=== PATIENT | male | born 1965 | race Caucasian/White ===

== ENCOUNTER 2017-03-30 14:51 | Inpatient (IN) ==
--- OUTSIDE RECORDS SUMMARY | 2017-03-29 17:06 | External Medical Summary | Continuity of Care Document ---
:1965 Author Organization [facility] Allergies Active Description Code Type Severity Reaction Onset Reported/ Identified Relationship Clinical to Patient Status Yes No Known NKMA N/A N/A 01/08/2014 Medication Allergies Yes oxyCODONE NKMA N/A aggressiv 09/15/2015 eness [id number] Medications Problems Date Dx Attending Type Code Diagnosis Diagnosed By Coded 02/16/2016 Aditya Porter M54.5 Low back pain Carol M 05/09/2016 Howie Hoang Final K62.5 Hemorrhage of anus F and rectum 05/10/2016 Brown Vu Final K92.1 Melena M 05/10/2016 Brown Vu Final R19.7 Diarrhea, M unspecified 09/13/2016 German Final M54.5 Low back pain Carol M 09/13/2016 German, Final R10.9 Unspecified Carol M abdominal pain 02/07/2017 German, Final N50.812 Left testicular Carol M pain 02/07/2017 German, Final R10.32 Left lower Carol M quadrant pain Procedures Code Description Performed By Performed On 02/16/2016 12726 Radiologic examination, spine, lumbosacral; 2 or 3 views.. 02/16/2016 00291 Office or other outpatient visit for the evaluation and management of an established patient, which requires at least 2 of these 3 sharma components: An expanded problem focused history; An expanded prob 05/05/2016 29642 Office or other outpatient visit for the evaluation and management of an established patient, which requires at least 2 of these 3 sharma components: An expanded problem focused history; An expanded prob 05/10/2016 90580 Office or other outpatient visit for the evaluation and management of a new patient, which requires these 3 sharma components: A comprehensive history; A comprehensive examination; Medical decision henry 05/10/2016 15539 Office or other outpatient visit for the evaluation and management of an established patient, which requires at least 2 of these 3 sharma components: A detailed history; A detailed examination; Medical d 09/13/2016 80921 Urinalysis, by dip stick or tablet reagent for bilirubin, glucose, hemoglobin, ketones, leukocytes, nitrite, pH, protein, specific gravity, urobilinogen, any number of these constituents; automated, w 09/13/2016 23495 Office or other outpatient visit for the evaluation and management of an established patient, which requires at least 2 of these 3 sharma components: An expanded problem focused history; An expanded prob 02/07/2017 47922 Office or other outpatient visit for the evaluation and management of an established patient, which requires at least 2 of these 3 sharma components: An expanded problem focused history; An expanded prob Results Encounters ACCT No. Visit Discharge Status Pt. Type Provider Facility Loc./Unit Complaint Date/Time [id number] 06/21/2013 06/21/2013 CLS Outpatient 13:37:00 23:59:59 [id number] 06/19/2013 06/19/2013 CLS Outpatient 14:29:00 23:59:59 [id number] 02/07/2017 02/07/2017 DIS Outpatient [place] [facility] New FM STOMACH 40 15:56:00 23:59:00 , Carol Alina ISSUES M Clinic [id number] 09/13/2016 09/13/2016 DIS Outpatient [place] [facility] FM lower back 04 14:46:00 23:59:00 , Carol Fuller pain with M Clinic no injury [id number] 05/10/2016 05/10/2016 DIS Outpatient [place] [facility] New RECTAL 04 15:32:00 23:59:00 , Brown Fuller Surg BLEEDING/A Clinic BD PN [id number] 05/05/2016 05/05/2016 [facility] Outpatient Hoang, [facility] New FM Rectal 68 09:41:00 23:59:59 Howie Fuller bleeding Clinic [id number] 02/16/2016 02/16/2016 DIS Outpatient [place] [facility] New FM TCPA 28 10:37:00 23:59:00 , Carol Fuller lower back M Clinic pain [id number] 09/15/2015 09/15/2015 DIS Outpatient Viktor, [facility] FM pain in 90 14:53:00 23:59:00 Howie Fuller surgery Clinic with from Dr. Vu [id number] 02/10/2015 02/10/2015 DIS Outpatient Viktor, [facility] New FM cut hand 49 14:21:00 23:59:00 Howie Fuller with saw Clinic [id number] 12/17/2014 12/17/2014 DIS Outpatient Viktor, [facility] New FM Post 40 10:29:00 23:59:00 Howie Fuller surgery Clinic pain and fever [id number] 12/12/2014 12/12/2014 DIS Outpatient Lawrence [facility] [place] op 12 09:06:00 23:59:00 , Carina Fuller Surg L Clinic [id number] 12/04/2014 12/04/2014 DIS Outpatient Viktor, [facility] New FM unusual 34 10:15:00 23:59:00 Howie Fuller swelling Clinic after surgery hernia
[2017-03-29 17:20] VITALS: BMI 32.7
--- NOTE | 2017-03-29 20:29 | General Surg History&Physical ---
- History of Present Illness Chief complaint: Left inguinal pain, swelling, redness HPI: Per Dr. Vu [facility]1983 Patient Stated Medical History No chronic problems Surgical History: 12-01-2014 Left inguinal hernia repair with mesh. 2004 ORIF right hand. 06-24-2016 colonoscopy with random biopsies- normal, diverticulosis. Family History: Father - [place] Mother - COPD Sister - Breast cancer - Social History Smoking status: Never smoker Alcohol intake: current Alcohol intake frequency: 3 or more drinks per day (3 or more Beer a day) Housing: house Household members: spouse Current occupational status: employed ([employer]) Medications Home Medications Medication Instructions Recorded Confirmed Type No known Home medications [No home 03/29/17 03/29/17 History meds] Allergies Allergy/AdvReac Type Severity Reaction Status Date / Time oxycodone Allergy Unknown AGGRESSION Verified 03/29/17 17:27 diphenhydramine AdvReac Sedation Verified 03/29/17 17:29 [From Benadryl] Review of Systems 10-point ROS: negative except for HPI and the following: - General General: Present: fever - Gastrointestinal Gastrointestinal: Present: blood in stools (occasionally) - Genitourinary Additional comments: since the left swelling and redness started in left inguinal area, urine stream has become weak, no dysuria - Musculoskeletal Musculoskeletal: Present: back pain, joint pain (wrist) - Neurological Neurological: Present: other (headaches) - Vital Signs Last Vital Signs Temp 98.6 F 03/29/17 17:11 Pulse 70 03/29/17 17:11 Resp 18 03/29/17 17:11 BP 147/100 H 03/29/17 17:11 Pulse Ox 92 03/29/17 17:11 Hospital Course Summary Disclaimer: The visit summary below is not to be considered part of the above Progress Note.
[2017-03-29] MEDS: LR 1,000 ML IV SCH (20:58)
[2017-03-29] MEDS: PIPERACILLIN/TAZOBACTAM 3.375 GM in NS 100 ML IV SCH (20:58)
[2017-03-30] MEDS: PIPERACILLIN/TAZOBACTAM 3.375 GM in NS 100 ML IV SCH ×4 (02:37→20:42)
[2017-03-30] MEDS: LR 1,000 ML IV SCH ×3 (08:57→18:41)
[2017-03-30] MEDS: SALINE FLUSH 10ml SYRINGE IV PRN (09:01)
--- NOTE | 2017-03-30 14:48 | Anesthesia Preoperative Report ---
Anesthesia Preoperative Record - Date and Time Date: 03/30/17 Preoperative Diagnosis: incision and drainage l groin Proposed Procedure: Left groin abcess drainage NPO Since Date: 03/29/17 NPO Since Time: 20:30 Allergies/Adverse Reactions: Allergies Allergy/AdvReac Type Severity Reaction Status Date / Time oxycodone Allergy Unknown AGGRESSION Verified 03/30/17 14:32 diphenhydramine AdvReac Sedation Verified 03/30/17 14:32 [[facility]] - Vital Signs Vital Signs: Temperature 97.1 F 03/30/17 14:33 Pulse Rate 59 L 03/30/17 14:33 Respiratory Rate 19 03/30/17 14:33 Blood Pressure 132/88 03/30/17 14:33 Pulse Oximetry 93 03/30/17 14:33 Height and Weight: Height 5 ft 11 in Weight 107.1 kg Body Mass Index 32.7 - Medications Inpatient Medications: Current Medications Hydrocodone Bitart/Acetaminophen ([place] 5/325) 1 - 2 tab PO Q6H PRN PRN Reason: Pain Lactated Ringer's (Lactated Ringers) 1,000 mls @ 100 mls/hr IV .Q10H [facility] Last Infusion: 03/30/17 10:51 Dose: 100 mls/hr Piperacillin Sod/Tazobactam (Sod 3.375 gm/ Sodium Chloride) 100 mls @ 200 mls/ hr IV Q6H [facility] Last Admin: 03/30/17 14:38 Dose: 200 mls/hr Morphine Sulfate (Morphine Sulfate Inj) 1 - 4 mg IVP Q2H PRN PRN Reason: Pain Ondansetron HCl (Zofran) 4 mg IVP Q6H PRN PRN Reason: Nausea &/or vomiting Sodium Chloride (Iv Flush) 10 - 80 ml IV PRN PRN PRN Reason: Flushing Last Admin: 03/30/17 09:01 Dose: 10 ml Home Medications: Home Medications Medication Instructions Recorded Confirmed Type No known Home medications [No home 03/29/17 03/29/17 History meds] Is Patient on Beta [place]?: No - Medical History Respiratory: Reports: Asthma DENIES: Bronchitis, Chronic Obstructive Pulmonary Disease (COPD), Dyspnea, Orthopnea, Pulmonary Embolism, Pneumonia, Upper Respiratory Infection, Pulmonary Edema, Sleep Apnea, Tuberculosis, Other Cardiovascular: DENIES: Abnormal EKG, Angina, Arrhythmia, Congestive Heart Failure, Coronary Artery Disease, Heart Murmur, Hypertension, Hypotension, High Cholesterol, Myocardial Infarction, Rheumatic Fever, Valvular Heart Disease, Other Gastrointestional: DENIES: Obstructive Bowel, Hepatitis, Cirrhosis, Nausea or Vomiting Present, Gastroesophageal Reflux Disease, Gastrointestinal Bleeding, Hiatal Hernia, Ulcer , Morbid Obesity, Other Neuro/Musculoskeletal: Denies: HX.MS.OSAR, Back Problems, Cerebrovascular Accident, Depression, Headaches, Loss of Consciousness, Muscle Weakness, Neuromuscular Disorder, Paralysis, Paresthesia, Syncope, Seizures, Other Renal/Endocrine: DENIES: Diabetes Mellitus Type 1, Diabetes Mellitus Type 2, Renal Failure, Dialysis, Thyroid Disease, Weight Loss, Weight Gain, Other Other History: DENIES: Anesthesia Reactions, Now, Blood Transfusions, Chemotherapy , Cancer, Hemophilia, Malignant Hyperthermia, Sickle Cell Disease, Other - Surgical History GI Surgery/Treatments: Reports: Colonoscopy Anesthesia Reactions: None Hx Family Anesthesia Reaction: No History of Motion Sickness: No - Social History Smoking Status: Never smoker Hx Chewing Tobacco Use: No Second Hand Exposure: No Substance Use Type: does not use Alcohol Intake: current Alcohol Intake Frequency: 3 or more drinks per day (3 or more Beer a day) - Pertinent Findings Laboratory: CBC and BMP 03/29/17 20:33 03/29/17 20:33 BMP 03/29/17 20:33 Sodium 143 Potassium 4.0 Chloride 106 Carbon Dioxide 27 BUN 12.0 Creatinine 1.0 Glucose 85 Calcium 8.7 Urine 03/29/17 Range/Units 23:52 Urine Color Yellow (YELLOW) Urine Clarity Clear Urine pH 7.0 (5.0-8.0) Ur Specific [place] 1.010 L (1.015-1.025) Urine Protein Negative (NEGATIVE) Urine Glucose (UA) Negative (NEGATIVE) EKG: Sinus Rhythm - Physical Exam Respiratory Exam: Present: lungs clear, bilateral breath sounds equal Cardiovascular Exam: Present: regular rate and rhythm, no murmur - Airway Assessment Mallampati Score: I TMD: 3 Fingerbreadths Neck Extension: good Teeth: patial upper dentures, partial lower dentures Overall Assessment: no airway concerns - ASA ASA Score: 1, E - Plan Anesthesia: General TIVA - Discussion Discussion: Discussed risks/options/alternatives of anesthesia and questions answered. Patient consents. Nursing pain assessment noted. Present for Discussion: spouse Attestation Statement: Prior to the delivery of any anesthetic medication, I examined the patient, developed the plan, obtained the patient's consent and discussed the risk and benefits of the procedure with the patient/guardian. - Additional Information Seen by Anesthesia: Yes
[~2017-03-30 14:51] MED LIST: MORPHINE SULFATE 4mg INJECTION IVP PRN; ONDANSETRON 4 MG/2 ML INJECTION IVP PRN
[2017-03-30] MEDS ORDERED: PROPOFOL 500 MG/50 ML VIAL IV ONE ×3 (15:02→16:03)
[2017-03-30] MEDS ORDERED: KETAMINE 500 MG/10 ML INJECTION ONE (15:04)
[2017-03-30] MEDS ORDERED: FentaNYL 100 MCG/2 ML INJECTION ONE ×2 (15:04→16:30)
[2017-03-30] MEDS ORDERED: SALINE FLUSH 10ml SYRINGE ONE (15:09)
--- NOTE | 2017-03-30 16:09 | Progress Note ---
DATE 03/30/2017 FINDINGS Mr. Faye states that the redness has markedly improved after initiating antibiotics. He states he is still experiencing however a moderate amount of discomfort within the left inguinal region. OBJECTIVE VITALS: Afebrile. Normotensive. Last recorded vitals include temperature 97.1 , pulse 59, respirations 19, blood pressure 132/88, SaO2 93% on room air. CHEST: Clear to auscultation bilaterally. HEART: Regular rate and rhythm. Normal S1, S2, without gallops, murmurs or clicks. ABDOMEN: Soft, nontender. Attention was focused to the left inguinal region. The erythema involving the left inguinal region has begun to dissipate. Upon palpation, the patient still has a firm discrete painful mass that is about 2 cm lateral to the pubic symphysis. This subcutaneous mass was about 3 cm in diameter. ASSESSMENT 51-year-old gentleman who presents with erythema and subcutaneous mass involving left inguinal region suspicious for underlying abscess. Patient status post left inguinal herniorrhaphy with incorporation of mesh approximately two years ago. PLAN Given the fact that he had been on antibiotics previously and this process had resolved to only reoccur after discontinuing antibiotics and the fact that the CT scan does reveal a fluid collection suspicious for an abscess, it would be my recommendation that we go ahead and proceed with left inguinal exploration. If indeed an abscess is identified, we will proceed with incision and drainage of underlying abscess and excision of infected tissue. If there is evidence that the infection is involving mesh we may proceed with explantation/removal of mesh. The above plan was discussed with the patient and his . They understood and wished to proceed as stated above. CHERELLE
[2017-03-30] MEDS ORDERED: PROPOFOL 60 ML ONE (16:28)
[2017-03-30] MEDS ORDERED: GENTAMICIN 80mg/2ml INJECTION ONE (16:40)
[2017-03-30] MEDS ORDERED: PROPOFOL 40 ML ONE (16:59)
--- NOTE | 2017-03-30 17:20 | General Surgery Procedure Note ---
Date of Procedure: 03/30/17 Surgeon: Horace Warehouse Picker: Mckinley Lawrence APRN Postoperative Diagnosis: Abscess with infected left inguinal mesh. Procedure: Left inguinal exploration with explantation of mesh Estimated Blood Loss: See Anesthesia Record.
[2017-03-30] MEDS ORDERED: HYDROMORPHONE 2 MG/ML INJECTION IVP PRN (17:42)
[2017-03-30] MEDS ORDERED: ACETAMINOPHEN IV 1,000 MG/100 ML VIAL IV ONE (18:00)
[2017-03-30] MEDS: HYDROCODONE/APAP 5mg/325mg TABLET PO PRN (20:11)
--- NOTE | 2017-03-30 20:24 | Anesthesia Postoperative Note ---
- Date and Time Date: 03/30/17 Time: 20:15 - Status Patient Participated in Evaluation: Patient Participated in Person Vital Signs: Temperature 97.1 F 03/30/17 18:21 Pulse Rate 48 L 03/30/17 19:08 Respiratory Rate 9 L 03/30/17 18:20 Blood Pressure 115/82 03/30/17 19:08 Pulse Oximetry 96 03/30/17 19:08 Cardiovascular Function: Regular Pulse Mental Status: Alert and Oriented (slightly drowsy) Pain Intensity: 3 Hydration: Taking PO Fluids Complications During Recover: None Apparent - Follow-Up Instructions Instructions: Per Surgeon
[2017-03-31] MEDS: MORPHINE SULFATE 4mg INJECTION IVP PRN ×2 (00:43→05:36)
[2017-03-31] MEDS: PIPERACILLIN/TAZOBACTAM 3.375 GM in NS 100 ML IV SCH ×4 (02:14→22:21)
[2017-03-31] MEDS: LR 1,000 ML IV SCH (06:07)
[2017-03-31] MEDS ORDERED: LR 1,000 ML IV SCH (09:00)
[2017-03-31] MEDS ORDERED: PROPOFOL 40 ML ONE (09:31)
[2017-03-31] MEDS ORDERED: FentaNYL 100 MCG/2 ML INJECTION ONE (09:31)
[2017-03-31] MEDS ORDERED: PROPOFOL 20 ML ONE (10:53)
--- NOTE | 2017-03-31 10:54 | Anesthesia Preoperative Report ---
Anesthesia Preoperative Record - Date and Time Date: 03/31/17 Preoperative Diagnosis: incision and drainage l groin Proposed Procedure: left groin I&D and wound vac NPO Since Date: 03/30/17 NPO Since Time: 23:00 Allergies/Adverse Reactions: Allergies Allergy/AdvReac Type Severity Reaction Status Date / Time oxycodone Allergy Unknown AGGRESSION Verified 03/30/17 14:32 diphenhydramine AdvReac Sedation Verified 03/30/17 14:32 [From [facility]] - Vital Signs Vital Signs: Temperature 99.5 F 03/31/17 08:05 Pulse Rate 82 03/31/17 08:05 Respiratory Rate 16 03/31/17 08:05 Blood Pressure 137/82 03/31/17 08:05 Pulse Oximetry 91 03/31/17 08:05 Height and Weight: Height 5 ft 11 in Weight 107.1 kg Body Mass Index 32.7 - Medications Inpatient Medications: Current Medications Hydrocodone Bitart/Acetaminophen ([place] 5/325) 1 - 2 tab PO Q6H PRN PRN Reason: Pain Last Admin: 03/30/17 20:11 Dose: 2 tab Lactated Ringer's (Lactated Ringers) 1,000 mls @ 100 mls/hr IV .Q10H [facility] Last Admin: 03/31/17 06:07 Dose: 100 mls/hr Piperacillin Sod/Tazobactam (Sod 3.375 gm/ Sodium Chloride) 100 mls @ 200 mls/ hr IV Q6H [facility] Last Infusion: 03/31/17 09:30 Dose: Infused Lactated Ringer's (Lactated Ringers) 1,000 mls @ 50 mls/hr IV .Q20H FISH Last Admin: 03/31/17 08:57 Dose: 50 mls/hr Morphine Sulfate (Morphine Sulfate Inj) 1 - 4 mg IVP Q1H PRN PRN Reason: Pain Last Admin: 03/31/17 05:36 Dose: 4 mg Ondansetron HCl (Zofran) 4 mg IVP Q6H PRN PRN Reason: Nausea &/or vomiting Sodium Chloride (Iv Flush) 10 - 80 ml IV PRN PRN PRN Reason: Flushing Last Admin: 03/30/17 09:01 Dose: 10 ml Home Medications: Home Medications Medication Instructions Recorded Confirmed Type No known Home medications [No home 03/29/17 03/29/17 History meds] Is Patient on Beta [place]?: No - Surgical History GI Surgery/Treatments: Reports: Colonoscopy Surgery/Treatment: DENIES: Dialysis Anesthesia Reactions: None Hx Family Anesthesia Reaction: No History of Motion Sickness: No - Social History Smoking Status: Never smoker Hx Chewing Tobacco Use: No Second Hand Exposure: No Substance Use Type: does not use Alcohol Intake: current Alcohol Intake Frequency: 3 or more drinks per day (3 or more Beer a day) - Pertinent Findings Laboratory: CBC and BMP 03/31/17 04:06 03/31/17 04:06 BMP 03/31/17 04:06 Sodium 144 Potassium 4.2 Chloride 104 Carbon Dioxide 33 H BUN 11.0 Creatinine 1.1 Glucose 106 Calcium 8.5 EKG: Sinus Rhythm - Physical Exam Respiratory Exam: Present: lungs clear, bilateral breath sounds equal Cardiovascular Exam: Present: regular rate and rhythm, no murmur - Airway Assessment Mallampati Score: I TMD: 3 Fingerbreadths Neck Extension: good Teeth: patial upper dentures, partial lower dentures Overall Assessment: no airway concerns - ASA ASA Score: 2, E - Plan Anesthesia: General TIVA - Discussion Discussion: Discussed risks/options/alternatives of anesthesia and questions answered. Patient consents. Nursing pain assessment noted. Present for Discussion: spouse Attestation Statement: Prior to the delivery of any anesthetic medication, I examined the patient, developed the plan, obtained the patient's consent and discussed the risk and benefits of the procedure with the patient/guardian. - Additional Information Seen by Anesthesia: Yes
--- NOTE | 2017-03-31 11:00 | Operative Note ---
DATE OF PROCEDURE 03/30/2017 SURGEON Brown Vu MD [employer] Mckinley Lawrence APRN PREOPERATIVE DIAGNOSIS Left inguinal mass, abnormal CT scan revealing probable abscess within the left inguinal region. POSTOPERATIVE DIAGNOSIS Abscess within the left inguinal region secondary to probable mesh infection. PROCEDURE Exploration of left inguinal region with incision and drainage of abscess, explantation of infected mesh. ANESTHESIA TIVA/local. BRIEF HISTORY/INDICATIONS Mr. Faye is a 51-year-old gentleman whom I was asked to see last evening as a result of his history and physical findings of left inguinal discomfort. Upon examination, the patient's primary care physician had noted a mass within his left inguinal region. The patient had been on antibiotics empirically about two weeks ago and the infection/mass markedly improved. However, after the discontinuation of the antibiotics, this mass recurred. The patient's primary care physician had discussed this case with me yesterday during my office. I informed the patient's primary care physician that it was my recommendation to proceed with a CT scan for further evaluation. Last evening when I was operating, his primary care physician had notified me that the CT scan did reveal a probable abscess within the left inguinal region. The patient had undergone a prior left inguinal herniorrhaphy by me approximately two years ago. The patient thought that it had been about a year ago. However , upon reviewing the records, this actually occurred more than two years ago. Secondary to this abnormal CT scan, the patient was admitted to the hospital and placed on broad-spectrum antibiotics. This morning the erythema had improved markedly. He continued, however, to have a painful, firm mass within the left inguinal region. This mass was located just lateral to the pubic symphysis region. It was my recommendation that we proceed with surgical exploration for it was fear that the patient may have an underlying mesh infection. For completeness please refer to notes included in the patient's chart. DESCRIPTION OF PROCEDURE After informed consent was obtained, the patient was brought to the operative suite and placed on the table in a supine fashion. Left inguinal region was then prepped and draped in a sterile fashion. Formal time-out was then completed. 0.25% Marcaine with epinephrine was injected just above the pubic symphysis and extended out laterally beneath his prior surgical incision site. Next, a 7 cm incision was then made overlying the area of analgesia. Dissection was carried down in the deep subcuticular tissues. Secondary to the fact that this was a reoperation, in conjunction with the infection/ inflammation that was present, dissection and identification of the anatomy was somewhat technically difficult. Dissection was carried down to the underlying external oblique aponeurosis. One could see where the external oblique aponeurosis had been opened previously and closed during his prior inguinal herniorrhaphy. Upon palpation of the external oblique aponeurosis, there was a hard mass located just lateral to the pubic symphysis. One could see what appeared to be that of the external ring and the cord structures exiting through the external ring near the pubic symphysis. The external oblique aponeurosis was opened out laterally away from the area of marked inflammation. As one opened up the external oblique aponeurosis, the underlying tissue was not infected and there was no purulent material. One could then begin to see the cord structures which were carefully and meticulously dissected away from the external oblique aponeurosis as it was continued to be opened towards the pubic symphysis. As one approached the pubic symphysis there was a very hard discrete mass. This mass was entered and purulent material was expressed. Anaerobic and aerobic cultures were obtained and passed off the table. External oblique aponeurosis continued to be opened down to the external ring. Spermatic cord structures were quite adherent to the surrounding tissues but, with careful meticulous dissection, were able to be preserved and dissected out of the surgical field. A Kortney drain was placed around the cord structures. One could then see into this abscess cavity that was entered. One could then see the Prolene suture that had been tied upon the pubic symphysis anchoring the mesh overlay. Purulent material extended down to this suture. Surrounding tissues which were quite fibrotic and inflamed were then dissected away from the mesh overlay and the previously placed suture. The Prolene suture next to the pubic symphysis was then transected and removed. The mesh overlay that had been imbricated to the pubic symphysis as well as to the shelving edge of the inguinal ligament laterally and medially to the underlying internal oblique and transversalis aponeurosis was then dissected away from these structures. The abscess cavity did extend down to this mesh. The mesh was not densely adherent to the inguinal floor/Hesselbach's triangle as one would suspect following mesh implantation. The infection likely had disrupted the mesh from the underlying inguinal floor. The mesh was therefore able to be removed fairly easily. As one approached the cord structures, there was no sign of infection. The mesh plug was placed cephalad and lateral to the cord structures. The infection did not extend up to the mesh plug. The mesh plug was not visible but could be easily palpated above the cord structures. Secondary to the fact that the infection did not appear to extend beyond the inguinal floor and towards the internal ring, I elected not to open up this normal-appearing tissue to expose the mesh plug that had been previously placed within the internal ring. All grossly infected tissue and infected mesh was excised. Hemostasis was obtained with the use of electrocautery. I elected not to proceed with any type of closure. I did place the cord structures away from of the inguinal floor. A "skin flap" was created caudally along the incision. Rakes were placed upon the skin edges and retracted anteriorly. Subcutaneous tissues were then undermined a short distance caudally. I elected to go ahead and place the cord structures in this area that had been created within the subcutaneous tissues. The cord structures were placed within this subcutaneous pocket and the pocket was loosely imbricated around the cord structures in a running fashion with 3-0 Vicryl so that the cord structures were now out of the surgical field. The wound was then irrigated with gentamicin solution. A Kerlix roll was then placed within the open wound and the wound was packed. It is my plan that tomorrow we will reevaluate the patient's surgical wound and likely proceed with application of a wound VAC/utilization of negative wound pressure therapy. Will continue with broad spectrum antibiotics at this time. Additionally, it should be noted that Mckinley Lawrence APRN, was present throughout the entire case and played a pivotal role in providing assistance and exposure during the course of the procedure. CHERELLE
--- NOTE | 2017-03-31 11:11 | General Surgery Procedure Note ---
Date of Procedure: 03/31/17 Surgeon: Horace Specimen Transporter: Mckinley Lawrence APRN, Other (Andie Bone, RN CWS placement of wound vac ) Postoperative Diagnosis: abscess with infected mesh left inguinal area Procedure: debridement of necrotic tissue and mesh left inguinal area Estimated Blood Loss: See Anesthesia Record. Pathology: none sent
[2017-03-31] MEDS ORDERED: HYDROMORPHONE 2 MG/ML INJECTION IVP PRN (11:28)
--- NOTE | 2017-03-31 11:41 | Anesthesia Postoperative Note ---
- Date and Time Date: 03/31/17 Time: 11:40 - Status Patient Participated in Evaluation: Patient Participated in Person Vital Signs: Temperature 98.4 F 03/31/17 11:05 Pulse Rate 79 03/31/17 11:35 Respiratory Rate 18 03/31/17 11:35 Blood Pressure 109/75 03/31/17 11:35 Pulse Oximetry 90 03/31/17 11:35 Respiratory Function: Airway Patent, Regular Respirations Cardiovascular Function: Regular Pulse Mental Status: Alert and Oriented Pain Intensity: 1 Hydration: IV Infusing Complications During Recover: None Apparent - Follow-Up Instructions Instructions: Per Surgeon
[2017-03-31] MEDS ORDERED: KETOROLAC 30 MG/ML INJECTION IVP PRN (11:57)
[2017-03-31] MEDS ORDERED: HYDROMORPHONE PCA 30mg/30ml VIAL IV PRN ×2 (11:57)
--- NOTE | 2017-03-31 11:57 | Infectious Disease Consult ---
Infectious Disease Consult Date of Consultation: 03/31/17 Requesting Physician: Brown Vu Reason for Consultation: antibiotic recs History of Present Illness: Mr. Faye is a 51 y/o man who is s/p L inguinal hernia repair about 2 years ago. He developed swelling around his L testicle with pain and "purple" discoloration a few weeks ago. He was given an antibiotic that was twice a day (he can't recall the name) and it resolved his symptoms. Then a couple weeks after that, his symptoms recurred. He woke up Monday morning with swelling and pain in the L groin area. He was admitted here on Thursday 03/29. CT scan on 03/29 showed an abscess around the mesh. He was taken to the OR yesterday by Dr. Vu and this was drained and all infected mesh was removed. Some of the mesh was left intact. He was taken back to the OR today for placement of a wound VAC. His wound culture was initially reported as growing GPC, but not states "early growth." He is on Zosyn. I've been asked to help with his antibiotics. He also reports that he had an injury to his R hand in 2004 that led to a pin placement that became infected with Staph. He recalls seeing ID at that time and being on IV antibiotics for a prolonged period of time. He denies that he was placed on chronic suppressive antibiotics. Medications Home Medications Medication Instructions Recorded Confirmed Type No known Home medications [No home 03/29/17 03/29/17 History meds] Allergies Allergy/AdvReac Type Severity Reaction Status Date / Time oxycodone Allergy Unknown AGGRESSION Verified 03/30/17 14:32 diphenhydramine AdvReac Sedation Verified 03/30/17 14:32 [From Benadryl] [facility] Patient Stated Medical History Cerebrovascular Accident No Paralysis No Seizures No Syncope No Angina No Cardiac Arrhythmia No Congestive Heart Failure No Coronary Artery Disease No Heart Murmur No Hypertension No Hypotension No Myocardial Infarction No Rheumatic Fever No Valvular Heart Disease No Other Cardiology No Asthma Yes Bronchitis No Chronic Obstructive Pulmonary No Disease (COPD) Pneumonia No Pulmonary Edema No Pulmonary Embolism No Sleep Apnea No Tuberculosis No Other Respiratory No Diabetes Mellitus Type 1 No Diabetes Mellitus Type 2 No Cirrhosis No Gastroesophageal Reflux No Disease Gastrointestinal Bleeding No Hepatitis No Hiatal Hernia No Obstructive Bowel No Ulcer No Other GI No Osteoarthritis No Other Musculoskeletal No Anesthesia Reactions No Blood Transfusions No Chemotherapy No Malignant Hyperthermia No Other No Depression No Now No Medical History Updates: H/o infected hardware R 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 2004 ORIF right hand. 06-24-2016 colonoscopy with random biopsies- normal, diverticulosis. Family History Updates: Father - [place]. Mother - COPD. Sister - Breast cancer - Social History Smoking status: Never smoker Household members: spouse Does patient use chewing tobacco?: No Review of Systems All systems PM: 10-point ROS was reviewed, no additional remarkable complaints except - Constitutional Constitutional: Present: chills, fever(s) - EENMT Eyes: Absent: change in vision - Cardiovascular Cardiovascular: Absent: chest pain - Respiratory Respiratory: Present: cough. Absent: dyspnea - Gastrointestinal Gastrointestinal: Absent: diarrhea, nausea, vomiting - Genitourinary Genitourinary: Present: difficulty urinating (difficulty emptying bladder), scrotal swelling (L side), testicular pain (L side). Absent: dysuria - Integumentary/Breasts Integumentary: Absent: erythema - Neurological Neurological: Present: headache(s) Exam Vital Signs: Temperature 98.4 F 03/31/17 11:05 Pulse Rate 80 03/31/17 11:50 Respiratory Rate 18 03/31/17 11:50 Blood Pressure 120/78 03/31/17 11:50 Pulse Oximetry 91 03/31/17 11:50 Height/Weight/BMI: Height 1.8 m Weight 107.1 kg Body Mass Index 32.7 - Constitutional Present: no acute distress, well nourished, well developed, average body habitus - Routine HEENT Exam Head: Present: normocephalic, atraumatic Eye: Present: EOMI, PERRL ENT: Present: mucous membranes dry, dentition normal - Routine Neck Exam Present: supple - Routine Respiratory Exam Present: CTA bilaterally - Routine Cardiovascular Exam Present: RRR - Routine Abdominal Exam Present: soft, non distended, non tender. Absent: rebound, guarding Comments: hypoactive bowel sounds - Routine Exam Groin: Present: swelling (L groin area, wound VAC on wound), erythema (mild, around wound VAC) - Routine Extremities Exam Absent: cyanosis, clubbing, edema - Routine Skin Exam Present: intact. Absent: rash - Routine Neurological Exam Present: alert, oriented X3, CN II-XII intact. Absent: motor deficit - Routine Psychiatric Exam Present: normal affect, normal thought process Results - Labs CBC & Chem 7: 03/31/17 04:06 03/31/17 04:06 Microbiology Results: Microbiology 03/30/17 15:45 Groin Gram Stain - Final 03/30/17 15:45 Groin Abscess Culture - Preliminary Early growth Impression: Infected L inguinal hernia mesh, s/p I&D with partial mesh removal 03/30/17, wound cultures pending. S/p wound VAC placement 03/31. L groin/testicular swelling and pain secondary to above Difficulty emptying bladder, ? due to swelling and groin abscess H/o infected ORIF R hand with "staph" Recommendation: Recommend continuing Zosyn and adding Vancomycin for now. I anticipate that he might need IV antibiotics for at least 2 weeks. Will re-evaluate on Monday, and hopefully culture results will be available then.
[2017-03-31] MEDS ORDERED: VANCOMYCIN - PHARMACY CONSULT MC ONE (12:11)
--- NOTE | 2017-03-31 14:26 | Pharmacy Consult-Antibiotics ---
Pharmacy Consult-Vancomycin - Laboratory Information WBC 8.7 T/MM3 (4.5-11.0) 03/31/17 04:06 BUN 11.0 MG/DL (9-20) 03/31/17 04:06 Creatinine 1.1 MG/DL (0.8-1.5) 03/31/17 04:06 - Consult Information 51 y.o. Male with abscess around L testicle. Abscess surgically drained and infected mesh removed. Zosyn and Vancomycin protocol ordered empirically. goal Vancomycin trough= 15 to 20 mcg/ml. Will give Vancomycin 2 gm IV Q12H. Pharmacy will monitor and adjust as needed. Thank you for the protocol, Damaris Newsome RPh
--- NOTE | 2017-03-31 14:35 | Progress Note ---
DATE OF VISIT 03/31/2017 FINDINGS Mr. Faye was seen earlier this morning preoperatively. He was complaining of a headache. He is experiencing some left inguinal discomfort as one would expect. VITALS: Afebrile. Normotensive. Vitals this morning included temperature 99.5 , pulse 82, respirations 16, blood pressure 137/82. CHEST: Clear to auscultation bilaterally. HEART: Regular rate and rhythm. Normal S1 and S2 without gallops, murmurs or clicks. ABDOMEN: Soft, nontender. Dressing was intact and covering incision within left inguinal region. The dressing was not removed this morning. ASSESSMENT 51-year-old gentleman status post incision and drainage of abscess within left inguinal region in conjunction with removal of infected mesh. Patient overall doing well this morning from a surgical standpoint. PLAN I did call Infectious Disease earlier this morning and discuss Corby's case with Dr. Lazo. Dr. Lazo stated that she would be able to see the patient today from an infectious disease standpoint. From a general surgical standpoint, it was my recommendation to Corby that we return him to the operative suite today and reexplore his wound and do any additional debridement as indicated and proceed with application of an Instill VAC. The above plan was discussed with Corby this morning and understood and agreed. CHERELLE
--- NOTE | 2017-03-31 18:09 | Operative Note ---
DATE OF SERVICE 03/31/2017 SURGEON Brown Vu MD PREOPERATIVE DIAGNOSIS Status post incision and drainage of abscess within left inguinal region and removal of infected mesh. POSTOPERATIVE DIAGNOSIS Status post incision and drainage of abscess within left inguinal region and removal of infected mesh. PROCEDURE Exploration of left inguinal wound with application of Instill VAC. ANESTHESIA TIVA BRIEF HISTORY/INDICATIONS Mr. Faye is a 51-year-old gentleman who has had the misfortune of developing a mesh infection following left inguinal herniorrhaphy. Patient had undergone a prior left inguinal herniorrhaphy in 2014. Yesterday he did undergo incision and drainage of an abscess involving the left inguinal region with excision of infected mesh. He presents today to undergo re-exploration of his wound with application of wound VAC to initiate negative wound pressure therapy. For completeness please refer to notes included in the patient's chart. DESCRIPTION OF PROCEDURE After informed consent was obtained the patient was brought to the operative suite and placed on the table in supine fashion. The left inguinal region was then prepped and draped in sterile fashion. Formal time-out was then completed. Next, attention was focused to his inguinal wound. Cord structures remained to be protected within the subcutaneous tissues caudad to the incision. Edges of the external oblique aponeurosis were grasped with [facility] clamps and retracted outwardly so that one could visualize the inguinal floor. There was no evidence for necrotic tissue. One could see a very minimal amount of remaining mesh near the external ring. The portion of mesh that persisted was perhaps less than 1 cm in diameter. This portion of mesh was grasped and retracted outwardly and excised with knife. There did not appear to be any evidence for infection beyond this site. Once again I focused my attention to the anatomic location of where the prior mesh plug had been placed. The mesh plug, as stated previously in prior operative note, was lateral to the cord structures as they exited through the internal ring. One could palpate the mesh plug beneath the external oblique aponeurosis. There was no evidence for infection /induration at this location and the external oblique aponeurosis remained to be intact covering this portion of the mesh. Once again I elected not to proceed with exposure of this mesh plug and removal of this mesh plug for there were no intraoperative findings to suggest this area of the mesh had been infected. Wound was again carefully inspected and meticulous hemostasis was obtained with electrocautery. Next, attention was focused towards installation of the wound VAC. Foam was placed within the depth of the wound overlying the inguinal floor as well as within the subcutaneous tissues. The patient will be awakened from his anesthetic and sent back to the recovery room/ preop area once deemed in stable condition. CHERELLE
[2017-04-01] MEDS: PIPERACILLIN/TAZOBACTAM 3.375 GM in NS 100 ML IV SCH ×4 (04:38→22:39)
[2017-04-01] MEDS: ENOXAPARIN 40 MG/0.4 ML INJECTION SQ SCH (10:52)
--- NOTE | 2017-04-01 13:55 | Progress Note ---
DATE OF VISIT 03/31/2017 FINDINGS I was notified earlier this morning that the patient began to experience increasing discomfort within the left inguinal and left scrotal region. Nursing stated that the area was beginning to "swell." Orders were given to discontinue the Instill VAC and to lift a portion of the Steri-Drape up so that the VAC was no longer functioning. It was my intuition that perhaps the patient was accumulating fluid within the inguinal region and extending into the scrotum that was not being "retrieved" with the wound VAC. It was my recommendation this morning that staff discontinue the instillation process of the VAC and reapply the VAC. Staff stated that they did notice immediate return of fluid after this had been accomplished. The patient now states that he is feeling significantly better. He has noted that the swelling has diminished. He denied severe pain. Additionally, the nursing staff had noted that the patient was beginning to develop a fair amount of redness involving the calf region beneath the SCDs. The patient was complaining of "itching" at this site. VITALS: Temperature 97.4, pulse 60, respirations 16, blood pressure 114/69. ABDOMEN: Soft, nontender. INGUINAL REGIONS: Attention was then focused to the inguinal region and scrotal region. VAC is in place and functioning. The periwound skin is without evidence for marked erythema. There is perhaps some minimal swelling that extends into the left scrotum although this is fairly subtle and not marked in nature. EXTREMITIES: One can see erythema corresponding with the location of his SCDs. There is a sharp transition of erythematous-appearing skin to normal- appearing skin which corresponds to the upper limits of where the SCDs have been placed upon his calves. ASSESSMENT 51-year-old gentleman with the misfortune of developing abscess with associated mesh infection involving left inguinal region. The patient is approximately 2-1 /2 years status post left inguinal herniorrhaphy. PLAN I did review the patient's chart. I reviewed Infectious Disease notes/ recommendations from yesterday. Yesterday I also spoke in my office with his primary care physician who informed me that prior to the onset of this abscess within the left inguinal region the patient had been seen with what was felt to be that of an epididymitis. The patient apparently had a fair amount of discomfort that had originated within the testicle itself. Perhaps the patient had an epididymitis that "seeded" the mesh. At this time we will continue with current antibiotic as recommended by Infectious Disease. Will continue utilizing negative wound pressure therapy over the course of . On Monday we will attempt to perform a wound VAC dressing at the bedside. If this is unable to be accomplished, will then return the patient to the operative suite for VAC change. Given his "irritation of the skin" from SCDs, will go ahead and discontinue SCDs at this time and begin Lovenox for DVT prophylaxis. YEVGENIYD
[2017-04-02] MEDS: PIPERACILLIN/TAZOBACTAM 3.375 GM in NS 100 ML IV SCH ×4 (03:41→21:40)
[2017-04-02] MEDS: ENOXAPARIN 40 MG/0.4 ML INJECTION SQ SCH (09:20)
[2017-04-02] MEDS: NS FLUSH BAG 500ml IV PRN (09:21)
[2017-04-02] MEDS: HYDROCORTISONE 2.5% CREAM 30gm TOP SCH ×2 (18:07→21:40)
[2017-04-03] MEDS: PIPERACILLIN/TAZOBACTAM 3.375 GM in NS 100 ML IV SCH ×2 (04:50→11:21)
--- NOTE | 2017-04-03 07:39 | Progress Note ---
DATE OF VISIT 04/02/2017 REASON FOR VISIT Covering surgical care for Dr. Vu. SUBJECTIVE Corby is doing fine this afternoon. He has walked in the hallways. He does still complain of some itching of his calves. OBJECTIVE VITALS: Afebrile with stable vitals on room air. GENITOURINARY: The wound VAC in the left groin is sealed well and the sponges collapsed. There is no significant skin erythema. EXTREMITIES: He continues to have redness of the posterior and medial calves. He also has some slight redness developing inferior and lateral to his wound VAC dressing. ASSESSMENT 1. Status post exploration of left inguinal region with incision and drainage of abscess and explantation of infected mesh - stable. 2. Skin rash related to SCDs and possibly adhesive of his wound VAC dressing - stable. PLAN 1. Continue wound VAC today. 2. Continue antibiotics. 3. Dr. Vu will be returning tomorrow. [facility] HOSPITALStacie
[2017-04-03] MEDS: HYDROCORTISONE 2.5% CREAM 30gm TOP SCH ×2 (09:09→21:36)
[2017-04-03] MEDS: ENOXAPARIN 40 MG/0.4 ML INJECTION SQ SCH (09:09)
--- NOTE | 2017-04-03 09:34 | Progress Note ---
Subjective Date: 04/03/17 Subjective: Mr. Faye is doing ok. He had some problems over the weekend with swelling, and the instillation on his VAC was discontinued. It's better now. He's noted itching and redness involving his calves, which appears to be from the SCD's. He's using topical steroid cream for that. He denies any rash anywhere else. Denies fevers, chills, Nausea or diarrhea. Pain is controlled. Reports his difficulty urinating has improved. Exam Vital Signs: Temperature 97.8 F 04/03/17 04:26 Pulse Rate 65 04/03/17 04:26 Respiratory Rate 16 04/03/17 05:00 Blood Pressure 124/78 04/03/17 04:26 Pulse Oximetry 95 04/03/17 04:26 Height/Weight/BMI: Height 1.8 m Weight 107 kg Body Mass Index 32.7 - Constitutional Present: no acute distress, well nourished, well developed - Routine HEENT Exam Head: Present: normocephalic, atraumatic Eye: Present: EOMI, PERRL ENT: Present: mucous membranes moist, dentition normal - Routine Neck Exam Present: supple - Routine Respiratory Exam Present: CTA bilaterally. Absent: accessory muscle use - Routine Cardiovascular Exam Present: RRR. Absent: murmur - Routine Abdominal Exam Present: soft, normoactive bowel sounds, non distended. Absent: tenderness, rebound, guarding - Routine Exam Comments: Mild swelling suprapubic area. VAC on L inguinal wound without any significant erythema noted. - Routine Extremities Exam Absent: cyanosis, clubbing, edema - Routine Skin Exam Present: intact, rash (involving calves bilaterally, no open wounds. No rash noted elsewhere.) - Routine Neurological Exam Present: alert, oriented X3, CN II-XII intact - Routine Psychiatric Exam Present: normal affect, normal thought process Results - Labs CBC & Chem 7: 04/03/17 04:13 04/03/17 04:13 Microbiology Results: Microbiology 03/30/17 15:45 Groin Gram Stain - Final 03/30/17 15:45 Groin Abscess Culture - Final Staphylococcus aureus (MSSA) R to tetracycline, I to doxy, sensitive to Oxacillin, clinda Impression: Infected L inguinal hernia mesh, s/p I&D with partial mesh removal 03/30/17, wound cultures with MSSA. S/p wound VAC placement 03/31. L groin/testicular swelling and pain secondary to above Difficulty emptying bladder, ? due to swelling and groin abscess H/o infected ORIF R hand with "staph" Recommendation: Will narrow antibiotics to ancef. There's mention in the chart of recent episode of "epididymitis" and whether that is related to this infection. Staph aureus is not typically associated with epididymitis. I'm more inclined to think that his recent testicular swelling was related to this infection declaring itself. Will place PICC line. I discussed the possibility of taking IV antibiotics at home. He's agreeable to doing this, as he has done it in the past in approximately 2004. I'll see if my office can provide the ancef for him. He reports that his VAC is going to be changed today.
[2017-04-03] MEDS: CEFAZOLIN 2 G in NS 100 ML IV SCH ×3 (11:01→21:35)
[2017-04-03] MEDS ORDERED: HYDROMORPHONE 2 MG/ML INJECTION IVP STA (11:05)
[2017-04-03] MEDS: HYDROCODONE/APAP 5mg/325mg TABLET PO PRN (11:13)
--- NOTE | 2017-04-03 12:14 | Wound Care Progress Note ---
Wound Management - Wound Left Groin Wound Present on Admission?: No Wound Bed Appearance: Beefy Red [place] Wound Appearance: [place] Tunneling: No Undermining: No Drainage Description: Serosanguineous Dressing Status: Changed Irrigant Solution: Saline Irrigant Packing Type: Woundvac Sponge Number of Packing Pieces Removed?: 3 Number of Packing Pieces Placed?: 1 Primary Dressing: Transparent Drape Secondary Dressing: Trac Pad Dressing Change Date: 04/03/17 Dressing Change Time: 12:15 Dressing Change Patient Tolerance: Tolerated Well (Pt premedicated/ Dr Vu on to see pt and assess wound.) Microbiology: Microbiology 03/30/17 15:45 Groin Gram Stain - Final 03/30/17 15:45 Groin Abscess Culture - Final Staphylococcus aureus
--- NOTE | 2017-04-03 13:14 | Progress Note ---
DATE 04/03/2017 FINDINGS Corby today states that he is feeling significantly better. His discomfort within the left inguinal region is also improved. EXAM VITALS: Afebrile. Normotensive. Please refer to EMR. Last recorded vitals include temperature 96.7, pulse 66, respirations 12, blood pressure 139/85. ABDOMEN: Soft, nontender. Attention was focused to the left inguinal region. Wound VAC was removed earlier this morning. Inspection of the wound reveals formation of some granulation tissue now forming along the edges as well as within the depth of the wound. There is no evidence for purulent drainage. Palpation reveals less induration. ASSESSMENT 51-year-old gentleman status post exploration of left inguinal region with incision and drainage of abscess and removal of infected mesh. Patient clinically improving. PLAN Continuation of negative wound pressure therapy and intravenous antibiotics. Cultures have returned revealing evidence for oxacillin sensitive staph aureus. I do see that Infectious Disease physician has seen the patient earlier today. She has narrowed his antibiotics now down to Ancef given the above microbiology findings. Will hope to be able to DC the patient to home in the near future and proceed with outpatient intravenous antibiotics. Will have discharge planning began on working to obtain arrangements for discharge. CHERELLE
[2017-04-03] MEDS: NS FLUSH BAG 500ml IV PRN (19:30)
[2017-04-04] MEDS: SALINE FLUSH 10ml SYRINGE IV PRN ×3 (05:03→22:04)
[2017-04-04] MEDS: NS FLUSH BAG 500ml IV PRN (05:03)
[2017-04-04] MEDS: CEFAZOLIN 2 G in NS 100 ML IV SCH ×3 (05:04→22:03)
[2017-04-04] MEDS: ENOXAPARIN 40 MG/0.4 ML INJECTION SQ SCH (08:29)
[2017-04-04] MEDS: HYDROCORTISONE 2.5% CREAM 30gm TOP SCH ×2 (08:29→22:04)
[2017-04-04] MEDS ORDERED: HYDROCODONE/APAP 10 MG/325 MG TABLET PO PRN (08:55)
--- NOTE | 2017-04-04 08:59 | General Surgery Progress Note ---
Subjective Patient reports: feels better, pain is less (this am left groin, although vac change yesterday with Dilaudid 1 mg and [place] 5 x2 was still very painful), tolerating a regular diet, voiding w/o difficulty (today), bowel movement ( yesterday, we discussed constipation and narcotic use, he will use Miralax at home prn) Narrative: States he slept better last night than any prior nights. Has not used [employer] Dilaudid since last night. - Vital Signs Last Vital Signs Temp 97.1 F 04/04/17 07:26 Pulse 58 L 04/04/17 07:26 Resp 18 04/04/17 07:26 BP 136/92 H 04/04/17 07:26 Pulse Ox 96 04/04/17 07:26 - Laboratory Result Diagrams: 04/04/17 04:07 04/04/17 04:07 - Microbiogy Microbiology 03/30/17 15:45 Groin Gram Stain - Final 03/30/17 15:45 Groin Abscess Culture - Final Staphylococcus aureus susceptible to most ABX, DR. Lazo has been consulted - Abnormal Exam Male: other (mild edema left scrotum compared to right) - Normal Exam General: awake, alert, no acute distress Abdominal: soft, non-tender Psychiatric: normal affect Neurological: CN 2-12 grossly intact Wound/Stoma/Drain Assessment - Wound Management Left Groin Wound Type: Surgical Incision Wound Present on Admission?: No Tunneling: No Wound Drainage Description: Serosanguineous (in vac canister) Wound Packing Type: Woundvac Sponge (nicely compressed, firm, no sign of leak) Primary Dressing: Transparent Drape (in tact) Secondary Dressing: Trac Pad Dressing Change Date: 04/03/17 Dressing Change Time: 12:15 Assessment and Plan (1) Abscess of groin, left Current Visit: Yes Status: Acute (2) Infected hernioplasty mesh Current Visit: Yes Status: Acute Plan: Vac looks good, no leak and foam nicely compressed. WBC normal at 6.9, BMP unremarkable. He is showing enough improvement that DC is looking possible for today or tomorrow. Will allow him [place] 10 prior to vac changes. Tentative plan on DC with wound vac today or tomorrow, and vac changes in the wound clinic 2x week. Antibiotic per DR. Lazo. Hospital Course Summary Disclaimer: The visit summary below is not to be considered part of the above Progress Note. Hospital Course: 03/31 I did call Infectious Disease earlier this morning and discuss Corby's case with Dr. Lazo. Dr. Lazo stated that she would be able to see the patient today from an infectious disease standpoint. From a general surgical standpoint, it was my recommendation to Corby that we return him to the operative suite today and reexplore his wound and do any additional debridement as indicated and proceed with application of an Instill VAC. 04/01 The patient apparently had a fair amount of discomfort that had originated within the testicle itself. Perhaps the patient had an epididymitis that "seeded" the mesh. At this time we will continue with current antibiotic as recommended by Infectious Disease. Will continue utilizing negative wound pressure therapy over the course of . On Monday we will attempt to perform a wound VAC dressing at the bedside. If this is unable to be accomplished, will then return the patient to the operative suite for VAC change. Given his "irritation of the skin" from SCDs, will go ahead and discontinue SCDs at this time and begin Lovenox for DVT prophylaxis. 04/02 1. Status post exploration of left inguinal region with incision and drainage of abscess and explantation of infected mesh - stable. 2. Skin rash related to SCDs and possibly adhesive of his wound VAC dressing - stable. 04/03 Infectious disease note Will narrow antibiotics to ancef. There's mention in the chart of recent episode of "epididymitis" and whether that is related to this infection. Staph aureus is not typically associated with epididymitis. I'm more inclined to think that his recent testicular swelling was related to this infection declaring itself. Will place PICC line. I discussed the possibility of taking IV antibiotics at home. He's agreeable to doing this, as he has done it in the past in approximately 2004. I'll see if my office can provide the ancef for him. He reports that his VAC is going to be changed today. 04/03 Continuation of negative wound pressure therapy and intravenous antibiotics. Cultures have returned revealing evidence for oxacillin sensitive staph aureus. I do see that Infectious Disease physician has seen the patient earlier today. She has narrowed his antibiotics now down to Ancef given the above microbiology findings. Will hope to be able to DC the patient to home in the near future and proceed with outpatient intravenous antibiotics. Will have discharge planning began on working to obtain arrangements for discharge. 04/04/17 09:11 Vac looks good, no leak and foam nicely compressed. WBC normal at 6.9, BMP unremarkable. He is showing enough improvement that DC is looking possible for today or tomorrow. Will allow him [place] 10 prior to vac changes. Tentative plan on DC with wound vac today or tomorrow, and vac changes in the wound clinic 2x week. Antibiotic per DR. Lazo. 04/04/17 09:13
[2017-04-04] MEDS: POLYETHYL GLYCOL 3350 17gm PACKET PO SCH (09:33)
--- NOTE | 2017-04-04 16:21 | Progress Note ---
DATE OF SERVICE 04/04/2017 FINDINGS Mr. Faye was concerned this morning that he had noted some increasing firmness beneath the wound VAC within the left inguinal region. He denies increasing pain or discomfort. VITALS: Afebrile. Normotensive. Last recorded vitals include temperature 97.1 , pulse 58, blood pressure 136/92. CHEST: Clear to auscultation bilaterally. HEART: Regular rate and rhythm. Normal S1 and S2 without gallops, murmurs or clicks. ABDOMEN: Attention was focused to the left inguinal region. Wound VAC is in place and functioning. The erythema surrounding the incision has completely resolved at this time. Visibly, there is no evidence for swelling of the left scrotum in comparison to yesterday. Palpation was undertaken. One can appreciate a small amount of firmness beneath the incision. This is not marked in nature. This does correspond to where the spermatic cord structure was placed within a subcutaneous pocket. I do believe that this slight area of firmness is postsurgical in nature. There is no evidence for fluctuance or erythema of the skin as stated above. LABORATORY/RADIOGRAPH EVALUATION The patient had a CBC today that was unremarkable. White count was 6.9. BMP was obtained and found to be without marked abnormalities. ASSESSMENT A 51-year-old gentleman with the misfortune of developing a mesh infection with associated abscess within the left inguinal region. Status post incision and drainage and explantation of infected mesh. Patient doing well. PLAN Continue with current IV antibiotics. Will make arrangements for a home VAC. Once arrangements have been made for intravenous home antibiotics and home VAC, the patient will be discharged. I am planning perhaps on changing the VAC one last time in the hospital and if the wound continues to improve then the patient may be discharged at that time. Otherwise, will continue with the current care. CHERELLE
[2017-04-04 16:30] VITALS: RESP 16
[2017-04-05] MEDS: CEFAZOLIN 2 G in NS 100 ML IV SCH ×3 (05:17→21:19)
[2017-04-05] MEDS ORDERED: HYDROCODONE/APAP 5mg/325mg TABLET PO PRN (07:16)
--- NOTE | 2017-04-05 07:43 | General Surgery Progress Note ---
Subjective Patient reports: still having pain (but less. He is quite concerned about vac changes without Dilaudid, understandably. ), tolerating a regular diet, voiding w/o difficulty, bowel movement (normal, almost daily with Miralax) - Vital Signs Last Vital Signs Temp 95.7 F L 04/05/17 04:00 Pulse 53 L 04/05/17 04:00 Resp 16 04/05/17 04:00 BP 125/81 04/05/17 04:00 Pulse Ox 94 04/05/17 04:00 - Laboratory Result Diagrams: 04/04/17 04:07 04/04/17 04:07 - Normal Exam General: awake, alert, oriented Cardiovascular: regular rhythm, regular rate Respiratory: equal bilaterally, no labored breathing Abdominal: soft, appropriately tender (left inguinal area), non-tender ( generally), incision(s) (left inguinal with wound vac foam compressed, no leak) Psychiatric: normal affect Wound/Stoma/Drain Assessment - Wound Management Left Groin Wound Type: Surgical Incision Wound Present on Admission?: No Tunneling: No Wound Drainage Description: Serosanguineous (in vac canister) Wound Packing Type: Woundvac Sponge (nicely compressed, firm, no sign of leak) Number of Packing Pieces Removed?: 3 Number of Packing Pieces Placed?: 1 Primary Dressing: Transparent Drape (in tact) Secondary Dressing: Trac Pad Dressing Change Date: 04/03/17 Dressing Change Time: 12:15 Assessment and Plan (1) Abscess of groin, left Current Visit: Yes Status: Acute (2) Infected hernioplasty mesh Current Visit: Yes Status: Acute Plan: Had along discussion about pain control, with his nearly daily intake of alcohol I did indicate he is at somewhat greater risk of liver damage over time , and with the added Tylenol in [place], would prefer we switch to 1 [place] 10 instead of 2 [place] 5. He understood and agreed, at home he can cut the [place] 10 in 1/2 when the pain decreases. Also provided education regarding Ibuprofen as an antiinflammatory that is usually quite helpful and detrimental to the liver. Ibuprofen 800 Q6 hr is now available. Anticipate vac change tomorrow with [place] 10 and Ibuprofen 800 about 1 hr before the change, his IV is still available if needed. Anticipate DC to home tomorrow. Hospital Course Summary Disclaimer: The visit summary below is not to be considered part of the above Progress Note. Hospital Course: 03/31 I did call Infectious Disease earlier this morning and discuss Corby's case with Dr. Lazo. Dr. Lazo stated that she would be able to see the patient today from an infectious disease standpoint. From a general surgical standpoint, it was my recommendation to Corby that we return him to the operative suite today and reexplore his wound and do any additional debridement as indicated and proceed with application of an Instill VAC. 04/01 The patient apparently had a fair amount of discomfort that had originated within the testicle itself. Perhaps the patient had an epididymitis that "seeded" the mesh. At this time we will continue with current antibiotic as recommended by Infectious Disease. Will continue utilizing negative wound pressure therapy over the course of . On Monday we will attempt to perform a wound VAC dressing at the bedside. If this is unable to be accomplished, will then return the patient to the operative suite for VAC change. Given his "irritation of the skin" from SCDs, will go ahead and discontinue SCDs at this time and begin Lovenox for DVT prophylaxis. 04/02 1. Status post exploration of left inguinal region with incision and drainage of abscess and explantation of infected mesh - stable. 2. Skin rash related to SCDs and possibly adhesive of his wound VAC dressing - stable. 04/03 Infectious disease note Will narrow antibiotics to ancef. There's mention in the chart of recent episode of "epididymitis" and whether that is related to this infection. Staph aureus is not typically associated with epididymitis. I'm more inclined to think that his recent testicular swelling was related to this infection declaring itself. Will place PICC line. I discussed the possibility of taking IV antibiotics at home. He's agreeable to doing this, as he has done it in the past in approximately 2004. I'll see if my office can provide the ancef for him. He reports that his VAC is going to be changed today. 04/03 Continuation of negative wound pressure therapy and intravenous antibiotics. Cultures have returned revealing evidence for oxacillin sensitive staph aureus. I do see that Infectious Disease physician has seen the patient earlier today. She has narrowed his antibiotics now down to Ancef given the above microbiology findings. Will hope to be able to DC the patient to home in the near future and proceed with outpatient intravenous antibiotics. Will have discharge planning began on working to obtain arrangements for discharge. 04/04/17 09:11 Vac looks good, no leak and foam nicely compressed. WBC normal at 6.9, BMP unremarkable. He is showing enough improvement that DC is looking possible for today or tomorrow. Will allow him [place] 10 prior to vac changes. Tentative plan on DC with wound vac today or tomorrow, and vac changes in the wound clinic 2x week. Antibiotic per DR. Lazo. 04/04/17 09:13 04/05/17 07:49 Had along discussion about pain control, with his nearly daily intake of alcohol I did indicate he is at somewhat greater risk of liver damage over time , and with the added Tylenol in [place], would prefer we switch to 1 [place] 10 instead of 2 [place] 5. He understood and agreed, at home he can cut the [place] 10 in 1/2 when the pain decreases. Also provided education regarding Ibuprofen as an antiinflammatory that is usually quite helpful and detrimental to the liver. Ibuprofen 800 Q6 hr is now available. Anticipate vac change tomorrow with [place] 10 and Ibuprofen 800 about 1 hr before the change, his IV is still available if needed.
[2017-04-05] MEDS: HYDROCORTISONE 2.5% CREAM 30gm TOP SCH ×2 (08:22→21:19)
[2017-04-05] MEDS: POLYETHYL GLYCOL 3350 17gm PACKET PO SCH (08:23)
[2017-04-05] MEDS: ENOXAPARIN 40 MG/0.4 ML INJECTION SQ SCH (08:23)
--- NOTE | 2017-04-05 09:11 | Progress Note ---
Subjective Date: 04/05/17 Subjective: He reports that he's anxious to be discharged. Denies pain except when the VAC is being changed. Denies fevers, nausea, diarrhea. Exam Vital Signs: Temperature 96.6 F L 04/05/17 07:50 Pulse Rate 52 L 04/05/17 07:50 Respiratory Rate 16 04/05/17 07:50 Blood Pressure 118/79 04/05/17 07:50 Pulse Oximetry 93 04/05/17 07:50 Height/Weight/BMI: Height 1.8 m Weight 104.3 kg Body Mass Index 32.7 - Constitutional Present: no acute distress, well nourished, well developed - Routine HEENT Exam Head: Present: normocephalic, atraumatic Eye: Present: EOMI, PERRL ENT: Present: mucous membranes moist, dentition normal - Routine Neck Exam Present: supple - Routine Respiratory Exam Present: CTA bilaterally - Routine Cardiovascular Exam Present: RRR. Absent: murmur - Routine Abdominal Exam Present: soft, normoactive bowel sounds, non distended. Absent: tenderness - Routine Exam Comments: wound VAC L groin without any surrounding redness. Minimal swelling. - Routine Extremities Exam Absent: cyanosis, clubbing, edema - Routine Skin Exam Absent: rash Comments: some redness L groin due to irritation from the adhesive. - Routine Neurological Exam Present: alert, oriented X3, CN II-XII intact Results - Labs CBC & Chem 7: 04/04/17 04:07 04/04/17 04:07 Microbiology Results: Microbiology 03/30/17 15:45 Groin Gram Stain - Final 03/30/17 15:45 Groin Abscess Culture - Final Staphylococcus aureus (MSSA) R to tetracycline, I to doxy, sensitive to Oxacillin, clinda Impression: Infected L inguinal hernia mesh, s/p I&D with partial mesh removal 03/30/17, wound cultures with MSSA. S/p wound VAC placement 03/31. L groin/testicular swelling and pain secondary to above Difficulty emptying bladder, ? due to swelling and groin abscess H/o infected ORIF R hand with "staph" Recommendation: Continue Ancef. If he is ready for discharge tomorrow, will have him come to my office in [place] at 1:00 for antibiotic teaching. Tentatively planning 2 weeks of IV antibiotics.
[2017-04-05] MEDS: HYDROCODONE/APAP 10 MG/325 MG TABLET PO PRN ×2 (11:15→21:39)
[2017-04-05] MEDS: NS FLUSH BAG 500ml IV PRN (13:11)
[2017-04-05] MEDS: SALINE FLUSH 10ml SYRINGE IV PRN (13:12)
[2017-04-06] MEDS: IBUPROFEN 800 MG TABLET PO PRN ×2 (00:26→07:17)
[2017-04-06] MEDS: HYDROCODONE/APAP 10 MG/325 MG TABLET PO PRN ×2 (02:34→07:16)
[2017-04-06] MEDS: CEFAZOLIN 2 G in NS 100 ML IV SCH (04:32)
[2017-04-06] MEDS: SALINE FLUSH 10ml SYRINGE IV PRN (04:32)
[2017-04-06 07:12] VITALS: BP 138/81; PULSE 53; TEMP 96.4; O2SAT 94
[2017-04-06] MEDS: ENOXAPARIN 40 MG/0.4 ML INJECTION SQ SCH (08:28)
[2017-04-06] MEDS: HYDROCORTISONE 2.5% CREAM 30gm TOP SCH (08:48)
[2017-04-06] MEDS: POLYETHYL GLYCOL 3350 17gm PACKET PO SCH (08:48)
--- NOTE | 2017-04-06 09:30 | Progress Note ---
DATE 04/05/2017 FINDINGS Mr. Faye was seen this evening on rounds. He states that he is feeling significantly better. He states that he is anxious to "go home." VITALS: Afebrile. Normotensive. Please refer to EMR. ABDOMEN/INGUINAL REGIONS: Attention was focused to the left inguinal region. Palpation beneath the incision/wound VAC reveals the induration to continue to dissipate/improve. There is no erythema noted within the periwound area. LABORATORY/RADIOGRAPH EVALUATION The patient did not have repeat lab obtained today. I did review a report from Infectious Disease performed earlier today. ASSESSMENT 51-year-old gentleman status post I&D of left inguinal abscess and removal/ explantation of infected mesh. Patient making marked improvement. PLAN Tomorrow, hopefully, we will be able to place a home wound VAC upon the patient and discharge him to home. Will discuss further antibiotic therapy with Infectious Disease. I am pleased with the patient's progress. CHERELLE
--- NOTE | 2017-04-06 11:27 | Wound Care Progress Note ---
Wound Management - Wound Left Groin Wound Present on Admission?: Yes Length: 2 Width: 13 Depth: 7 Wound Bed Appearance: Beefy Red [place] Wound Appearance: [place] Tunneling: No Undermining: No Drainage Description: Serosanguineous Drainage Amount: Moderate Drainage Odor: No Odor Dressing Status: Changed Packing Type: Woundvac Sponge Number of Packing Pieces Removed?: 1 Number of Packing Pieces Placed?: 1 Primary Dressing: Transparent Drape Secondary Dressing: Trac Pad Dressing Change Date: 04/06/17 Dressing Change Time: 08:00 Dressing Change Patient Tolerance: Tolerated Well (Pt will return to the wound clinic on 04/11 for change. Pt given instructions on home wound vac use)
--- NOTE | 2017-04-06 12:29 | Discharge Summary ---
Discharge Information Date of admission: 03/30/17 14:51 Anticipated date of discharge: 04/06/17 Attending Physician: Brown Vu MD Primary care physician: Malcolm Sawyer MD Consults: 03/30/17 18:21 Physician Consult [CONS] Routine Consulting Provider: Lisbeth Lazo Reason For Exam: infected inguinal mesh Ordering Provider has Notified Toll Gate Keeper: No Comment: may notify in the AM - Discharge Diagnosis (1) Abscess of groin, left Status: Acute (2) Infected hernioplasty mesh Status: Acute - Procedures Procedures: DATE OF SERVICE 03/31/2017 SURGEON Brown Vu MD PREOPERATIVE DIAGNOSIS Status post incision and drainage of abscess within left inguinal region and removal of infected mesh. POSTOPERATIVE DIAGNOSIS Status post incision and drainage of abscess within left inguinal region and removal of infected mesh. PROCEDURE Exploration of left inguinal wound with application of Instill VAC. - Laboratory Labs: 04/04/17 04:07 04/04/17 04:07 Laboratory Tests 03/31/17 03/31/17 04/02/17 04:06 04:06 04:29 WBC 8.7 6.6 Hgb 13.6 13.3 L Sodium 144 Potassium 4.2 BUN 11.0 Creatinine 1.1 04/03/17 04/03/17 04/04/17 04:13 04:13 04:07 WBC 7.0 6.9 Hgb 12.7 L 13.2 L Sodium 142 Potassium 4.2 BUN 8.0 L Creatinine 1.0 04/04/17 04:07 WBC Hgb Sodium 141 Potassium 4.1 BUN 11.0 Creatinine 0.9 - Microbiology Microbiology 03/30/17 15:45 Groin Gram Stain - Final 03/30/17 15:45 Groin Abscess Culture - Final Staphylococcus aureus - Radiology Radiology: CT scan 03-30-2017 IMPRESSION: 1. There is a rim-enhancing fluid collection seen which is just posterior to the left inguinal canal and extends from the left anterolateral pelvic wall just lateral to the rectus muscle and sheath and extends inferiorly to a level posterior to the inguinal canal region. This appears inflamed with dirtiness to the adjacent fat. This is of uncertain etiology and could be an infected fluid collection. A resolving hematoma is also a consideration. A seroma or an inflamed or infected bursa is also a possibility. Clinical correlation is suggested. 2. Colonic diverticuli without evidence for acute diverticulitis. 3. Fatty infiltration of the liver. 4. The gallbladder wall is thickened but likely is due to nondistention as it appears decompressed. - Pathology Acute necrotizing inflammation tissue left groin, infected mesh - History of Present Illness Chief complaint: Left inguinal pain, swelling, redness HPI: Per Dr. Vu BRIEF HISTORY/INDICATIONS Mr. Faye is a 51-year-old gentleman who has had the misfortune of developing a mesh infection following left inguinal herniorrhaphy. Patient had undergone a prior left inguinal herniorrhaphy in 2014. Yesterday he did undergo incision and drainage of an abscess involving the left inguinal region with excision of infected mesh. He presents today to undergo re-exploration of his wound with application of wound VAC to initiate negative wound pressure therapy. Hospital Course This is a general summary of the patient's hospital course. For more details refer to the complete medical record. Hospital course: 03/31 I did call Infectious Disease earlier this morning and discuss Corby's case with Dr. Lazo. Dr. Lazo stated that she would be able to see the patient today from an infectious disease standpoint. From a general surgical standpoint, it was my recommendation to Corby that we return him to the operative suite today and reexplore his wound and do any additional debridement as indicated and proceed with application of an Instill VAC. 04/01 The patient apparently had a fair amount of discomfort that had originated within the testicle itself. Perhaps the patient had an epididymitis that "seeded" the mesh. At this time we will continue with current antibiotic as recommended by Infectious Disease. Will continue utilizing negative wound pressure therapy over the course of . On Monday we will attempt to perform a wound VAC dressing at the bedside. If this is unable to be accomplished, will then return the patient to the operative suite for VAC change. Given his "irritation of the skin" from SCDs, will go ahead and discontinue SCDs at this time and begin Lovenox for DVT prophylaxis. 04/02 1. Status post exploration of left inguinal region with incision and drainage of abscess and explantation of infected mesh - stable. 2. Skin rash related to SCDs and possibly adhesive of his wound VAC dressing - stable. 04/03 Infectious disease note Will narrow antibiotics to ancef. There's mention in the chart of recent episode of "epididymitis" and whether that is related to this infection. Staph aureus is not typically associated with epididymitis. I'm more inclined to think that his recent testicular swelling was related to this infection declaring itself. Will place PICC line. I discussed the possibility of taking IV antibiotics at home. He's agreeable to doing this, as he has done it in the past in approximately 2004. I'll see if my office can provide the ancef for him. He reports that his VAC is going to be changed today. 04/03 Continuation of negative wound pressure therapy and intravenous antibiotics. Cultures have returned revealing evidence for oxacillin sensitive staph aureus. I do see that Infectious Disease physician has seen the patient earlier today. She has narrowed his antibiotics now down to Ancef given the above microbiology findings. Will hope to be able to DC the patient to home in the near future and proceed with outpatient intravenous antibiotics. Will have discharge planning began on working to obtain arrangements for discharge. 04/04/17 09:11 Vac looks good, no leak and foam nicely compressed. WBC normal at 6.9, BMP unremarkable. He is showing enough improvement that DC is looking possible for today or tomorrow. Will allow him Clio 10 prior to vac changes. Tentative plan on DC with wound vac today or tomorrow, and vac changes in the wound clinic 2x week. Antibiotic per DR. Lazo. 04/04/17 09:13 04/05/17 07:49 Had along discussion about pain control, with his nearly daily intake of alcohol I did indicate he is at somewhat greater risk of liver damage over time , and with the added Tylenol in Clio, would prefer we switch to 1 Clio 10 instead of 2 Clio 5. He understood and agreed, at home he can cut the Clio 10 in 1/2 when the pain decreases. Also provided education regarding Ibuprofen as an antiinflammatory that is usually quite helpful and detrimental to the liver. Ibuprofen 800 Q6 hr is now available. Anticipate vac change tomorrow with Clio 10 and Ibuprofen 800 about 1 hr before the change, his IV is still available if needed. 04/06/17 He did very well with vac change this am with only Clio 10 and Ibuprofen 800 mg about 1 hours before vac change. He was discharge soon after vac change and plans on seeing Dr. Lazo, infectious disease, at 1 pm today for IV antibiotic therapy. He will present to the [facility] on MondayApr 11 for vac change. Time spent with patient: 25 - 35 minutes DVT Prophylaxis: SCD's, Lovenox Discharge Plan - Med Rec/Dispo [place] Instructions: Acute Wound Care (DC), Negative Pressure Wound Therapy (DC ) Prescriptions: No Action No known Home medications [No home meds] 0 #0 misc - Disposition 01 Discharged Home, Self-Care
== END 2017-04-06 08:35 | disposition home or self-care (01) | DRG 908 ==
LOC: SRG
PROVIDERS: ADMIT Surgery; ATTEND Surgery